=== PATIENT | female | born 1995 | race Caucasian/White ===

== ENCOUNTER 2021-02-20 22:54 | Emergency (ER) | payer OTHER, SELFPAY ==
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
[2021-02-20 23:03] VITALS: BP 159/112; PULSE 89; RESP 18; TEMP 36.5; O2SAT 98
--- NOTE | 2021-02-20 23:03 | PC.NURSE ---
Trauma alert cancelled
[2021-02-20 23:08] VITALS: BP 159/112; PULSE 92; RESP 18; O2SAT 99; BMI 31.8
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
[2021-02-20 23:19] LABS: MANUAL DIFFERENTIAL MANUAL DIFFERENTIAL (MANUAL DIFF)
[2021-02-20 23:24] VITALS: BP 148/104; PULSE 90; O2SAT 98
[2021-02-20 23:25] LABS: Basophils # 0.2 K/mm3 (0-0.2); Basophils % 1.6 % (0.1-2.0); Eosinophils # 0.3 K/mm3 (0.0-0.4); Eosinophils % 2.7 % (0.1-12.0); Hematocrit 44.5 % (37.0-47.0); Hemoglobin 15.2 g/dL (12.2-16.2); Lymphocytes # 3.2 K/mm3 (0.7-4.5); Lymphocytes % 27.3 % (10-50); Mean Corpuscular HGB Conc 34.1 g/dL (31.8-35.4); Mean Corpuscular Hemoglobin 30.3 pg (27.0-31.2); Mean Corpuscular Volume 89.1 fl (81-99); Mean Platelet Volume 8.4 fl (7.4-10.4); Monocytes # 0.8 K/mm3 (0.1-1.0); Monocytes % 6.5 % (1.7-9.3); Neutrophils # 7.4 K/mm3 (1.8-7.8); Neutrophils % 61.9 % (37.0-80.0); Platelet Count 228 K/mm3 (142-424); Red Cell Distribution Width 14.3 % (11.5-17.5); White Blood Count 11.9 K/mm3 (4.8-10.8)
[2021-02-20 23:28] LABS: Alanine Aminotransferase 22 U/L (12-78); Albumin Level 4.7 g/dl (3.5-5.0); Albumin/Globulin Ratio 1.8 (1.1-1.8); Alkaline Phosphatase 103 U/L (38-126); Anion Gap 12.8 mEq/L (5-15); Aspartate Amino Transferase 34 U/L (14-36); Bilirubin,Total 0.4 mg/dl (0.2-1.3); Blood Urea Nitrogen 8 mg/dl (7-17); Calcium 9.3 mg/dl (8.4-10.2); Carbon Dioxide 25 mmol/L (22.0-30.0); Chloride 109 mmol/L (98-107); Creatinine Clearance Estimated 160 mL/min (50-200); Estimated Glomerular Filt Rate 103 ml/min (>60); GFR (African American) 124 ML/MIN (>60); Globulin 2.6 g/dL (1.3-3.2); Glucose 95 mg/dl (74-100); Lipase 77 U/L (23-300); Potassium 3.8 mmoL/L (3.5-5.1); Sodium 143 mmol/L (136-145); Total Protein,Serum 7.3 g/dl (6.3-8.2)
[2021-02-20 23:30] VITALS: BP 133/102; PULSE 82; O2SAT 98
[2021-02-20 23:32] LABS: HCG Qualitative, Serum Negative (Negative)
--- NOTE | 2021-02-20 23:38 | PC.NURSE ---
Pt to rad.
[2021-02-20 23:40] LABS: Eosinophils % 3 % (0-3); Lymphocytes % 28 % (10-50); Monocytes % 6 % (2-9); Neutrophils % 63 % (42-76); Total Cells Counted 100
[2021-02-20 23:41] LABS: Platelet Estimate Normal; RBC Morphology Normal
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
--- NOTE | 2021-02-21 00:07 | HMH.EDTRAUMA ---
ED Disposition Clinical Impression: Concussion Qualifiers: Encounter type: initial encounter Loss of consciousness presence/duration: with LOC of 30 min or less Qualified Code(s): S06.0X1A - Concussion with loss of consciousness of 30 minutes or less, initial encounter Contusion of rib on left side Qualifiers: Encounter type: initial encounter Qualified Code(s): S20.212A - Contusion of left front wall of thorax, initial encounter Blunt trauma to abdomen Qualifiers: Encounter type: initial encounter Qualified Code(s): S39.91XA - Unspecified injury of abdomen, initial encounter Disposition: Home, Self-Care Condition on Discharge: Good Instructions: DI for Concussion Additional Instructions: fluids and see pcp for follow up Referrals: Corinne Cano [Primary Care Provider] - - Critical Care Critical Care Time: No Attestation: On 02/20/21, the high probability of a clinically significant, sudden or life threatening deterioration of the following system(s) required my full and direct attention, intervention and personal management. The time I documented below is in addition to time spent performing reported procedures but includes the following listed in this critical care notation. Medical Decision Making - Medical Records Medical records reviewed: Yes: I reviewed the patient's medical records. - Brendan Inquiry Pt receiving controlled substance: No Vital Signs: 02/20/21 23:03 02/20/21 23:08 02/20/21 23:24 Temperature 97.7 F Temperature Source Oral Pulse Rate 90 Pulse Rate [Right Brachial] 89 92 H Respiratory Rate 18 18 Blood Pressure 148/104 H Blood Pressure [right arm] 159/112 H 159/112 H Blood Pressure Mean [right arm] 127 127 Blood Pressure Source [right arm] Automatic Cuff Automatic Cuff Blood Pressure Position [right arm] Sitting 02 Sat by Pulse Oximetry 98 99 98 Oxygen Delivery Method Room Air Room Air 02/20/21 23:30 02/21/21 00:24 02/21/21 00:30 Temperature Temperature Source Pulse Rate 82 83 70 Pulse Rate [Right Brachial] Respiratory Rate Blood Pressure 133/102 H 167/122 H 165/115 H Blood Pressure [right arm] Blood Pressure Mean [right arm] Blood Pressure Source [right arm] Blood Pressure Position [right arm] 02 Sat by Pulse Oximetry 98 97 98 Oxygen Delivery Method Room Air - Lab Data Lab results reviewed: Yes: I reviewed the patient's lab results. Lab Results 02/20/21 23:08: WBC 11.9 H, RBC 5.00, Hgb 15.2, Hct 44.5, MCV 89.1, MCH 30.3, MCHC 34.1, RDW 14.3, Plt Count 228, MPV 8.4, Neut % (Auto) 61.9, Lymph % (Auto) 27.3, [place] % (Auto) 6.5, Eos % (Auto) 2.7, Baso % (Auto) 1.6, Neut # (Auto) 7.4, Lymph # (Auto) 3.2, [place] # (Auto) 0.8, Eos # (Auto) 0.3, Baso # (Auto) 0.2, Total Counted 100, Neutrophils % (Manual) 63, Lymphocytes % (Manual) 28, Monocytes % (Manual) 6, Eosinophils % (Manual) 3, Platelet Estimate Normal, RBC Morphology Normal 02/20/21 23:08: Sodium 143, Potassium 3.8, Chloride 109 H, Carbon Dioxide 25, Anion Gap 12.8, BUN 8, Creatinine 0.70, Estimated Creat Clear 160, Estimated GFR 103, Est GFR ( Amer) 124, Glucose 95, Calcium 9.3, Total Bilirubin 0.4, AST 34, ALT 22, Alkaline Phosphatase 103, Total Protein 7.3, Albumin 4.7, Globulin 2.6, Albumin/Globulin Ratio 1.8, Lipase 77 02/20/21 23:08: Serum HCG, Qual Negative Result diagrams: 02/20/21 23:08 02/20/21 23:08 Orders (Tests/Meds): ED MEDICATIONS Generic Name Dose Route Start Last Admin Trade Name Freq PRN Reason Stop Dose Admin Lactated Ringer's 1,000 mls @ 999 mls/hr 02/20/21 23:15 02/20/21 23:22 Lactated Ringer's 1000 Ml Bag IV 02/21/21 00:15 999 mls/hr .Q1H1M JAMAL Administration Discontinued Medications Generic Name Dose Route Start Last Admin Trade Name Freq PRN Reason Stop Dose Admin Acetaminophen/Codeine Phosphate 1 babita 02/21/21 01:24 Acetaminophen 300mg W/Codeine 30mg Take Home Pack (6) PO 02/21/21 01:25 ONCE ONE Iopamidol 100
[2021-02-21 00:24] VITALS: BP 167/122; PULSE 83; O2SAT 97
[2021-02-21 00:30] VITALS: BP 165/115; PULSE 70; O2SAT 98
[2021-02-21 01:37] VITALS: BP 158/100; PULSE 75; RESP 16; TEMP 36.6; O2SAT 98
[2021-02-21 01:38] LABS: Microscopic, Urine URINE MICROSCOPIC (MICROSCOPIC)
[2021-02-21 01:43] LABS: Appearance,Urine SL CLOUDY (Clear); Bilirubin,Urine Negative (Negative); Blood, Urine Negative (Negative); Color,Urine STRAW (Yellow); Glucose,Urine (UA) Negative (Negative); Ketones,Urine Negative (Negative); Leukocyte Esterase,Urine TRACE (Negative); Nitrate,Urine Negative (Negative); PH,Urine 5.5 (5.0-8.5); Protein,Urine Negative (Negative); Urobilinogen,Urine 0.2 EU/dl (0.2)
[2021-02-21 01:45] LABS: Urine Pregnancy, HCG Qual. Negative (Negative)
[2021-02-21 01:51] LABS: Bacteria,Urine Trace /lpf
== END 2021-02-21 01:42 | disposition home or self-care (01) ==
PROVIDERS: Emergency Provider Emergency Medicine; PCP Nurse Practitioner Family
DX: S06.0X1A Concussion with loss of consciousness of 30 minutes or less, initial encounter (principal); S20.212A Contusion of left front wall of thorax, initial encounter; V86.55XA Driver of 3- or 4- wheeled all-terrain vehicle (ATV) injured in nontraffic accident, initial encounter; Y92.9 Unspecified place or not applicable
CPT/HCPCS: 70450; 71045; 71275; 72125; 72128; 72131; 72170; 74177; 80053; 81001; 81025; 83690; 84703; 85007; 85014; 85018; 85048; 85049; 87086; 96365; 96375; 99291; J2405; Q9967

== ENCOUNTER 2022-02-27 12:02 | Emergency (ER) | payer OTHER, SELFPAY ==
[2022-02-27] VITALS (10 sets, daily range): BP systolic 116–147; BP diastolic 86–110; PULSE 82–94; RESP 18; TEMP 37; O2SAT 96–99; BMI 28.7
--- NOTE | 2022-02-27 12:12 | ECG_ITS ---
APPROVED REPORT Exam: Resting ECG HR:97 bpm ECG Measurements Heart Rate 97 AXES ND 148 P 66 QRSd 72 QRS 89 QT 343 T 57 QTc 398 Conclusion SINUS RHYTHM NORMAL ECG UNCONFIRMED REPORT Electronically signed by : Fransisco Azevedo MD 02/28/2022 14:16:01
--- NOTE | 2022-02-27 12:24 | PC.NURSE ---
ED MD AT BEDSIDE FOR EVALUATION
--- NOTE | 2022-02-27 12:28 | XR_ITS ---
FINAL REPORT CLINICAL HISTORY: hypertension FINDINGS: A portable view of the chest was obtained. Comparison is made to a prior exam dated February 20, 2021. Cardiac and mediastinal silhouettes are within normal limits. The lungs are clear. There is no pleural effusion or pneumothorax. IMPRESSION: No acute process on this portable exam. Reviewed, Interpreted and Dictated by Daria Garcia MD Transcribed by Elton Moses Authenticated and [facility]
--- NOTE | 2022-02-27 12:45 | PC.NURSE ---
ROUNDED ON PT, UPDATED ON POC. ORDERED UA. PT INSTRUCTED TO CALL WHEN ABLE TO VOID. PT TALKING ON PHONE. NO NEEDS AT THIS TIME
[2022-02-27 12:52] LABS: Troponin I < 0.01 ng/ml (0.00-0.034)
--- NOTE | 2022-02-27 12:56 | PC.NURSE ---
XR AT BEDSIDE
--- NOTE | 2022-02-27 13:24 | PC.NURSE ---
ROUNDED ON PT, WARM BLANKET PROVIDED. REMAINS UNABLE TO VOID AT THIS TIME. CALL LIGHT WITHIN REACH
--- NOTE | 2022-02-27 13:53 | HMH.EDGENADL ---
ED Disposition Clinical Impression: Left against medical advice Disposition: Left Against Medical Advice Condition on Discharge: Fair Referrals: Tavia Soto, [facility] [Primary Care Provider] - - Critical Care Critical Care Time: No Attestation: On 02/27/22, the high probability of a clinically significant, sudden or life threatening deterioration of the following system(s) required my full and direct attention, intervention and personal management. The time I documented below is in addition to time spent performing reported procedures but includes the following listed in this critical care notation. Medical Decision Making - Brendan Inquiry Pt receiving controlled substance: No Vital Signs: 02/27/22 12:03 02/27/22 13:46 02/27/22 14:00 Temperature 98.6 F Temperature Source Oral Pulse Rate 85 90 Pulse Rate [Radial] 94 H Respiratory Rate 18 Blood Pressure 116/86 133/100 H Blood Pressure [Right Arm] 147/105 H Blood Pressure Mean 111 Blood Pressure Mean [Right Arm] 119 Blood Pressure Source [Right Arm] Automatic Cuff Blood Pressure Position [Right Arm] Sitting 02 Sat by Pulse Oximetry 99 96 97 Oxygen Delivery Method 02/27/22 14:15 02/27/22 14:30 02/27/22 14:45 Temperature Temperature Source Pulse Rate 85 83 83 Pulse Rate [Radial] Respiratory Rate Blood Pressure 137/97 H 129/102 H 137/110 H Blood Pressure [Right Arm] Blood Pressure Mean 114 109 119 Blood Pressure Mean [Right Arm] Blood Pressure Source [Right Arm] Blood Pressure Position [Right Arm] 02 Sat by Pulse Oximetry 97 98 96 Oxygen Delivery Method 02/27/22 15:00 02/27/22 15:07 02/27/22 15:15 Temperature Temperature Source Pulse Rate 83 88 82 Pulse Rate [Radial] Respiratory Rate Blood Pressure 135/103 H Blood Pressure [Right Arm] Blood Pressure Mean 117 130 141 Blood Pressure Mean [Right Arm] Blood Pressure Source [Right Arm] Blood Pressure Position [Right Arm] 02 Sat by Pulse Oximetry 98 98 98 Oxygen Delivery Method 02/27/22 15:33 Temperature 98.6 F Temperature Source Pulse Rate 88 Pulse Rate [Radial] Respiratory Rate 18 Blood Pressure 135/103 H Blood Pressure [Right Arm] Blood Pressure Mean Blood Pressure Mean [Right Arm] Blood Pressure Source [Right Arm] Blood Pressure Position [Right Arm] 02 Sat by Pulse Oximetry Oxygen Delivery Method Room Air - Lab Data Lab Results 02/27/22 12:15: Troponin I < 0.01 02/27/22 12:15: WBC 5.0, RBC 5.21, Hgb 16.7 H, Hct 48.2 H, MCV 92.6, MCH 32.1 H, MCHC 34.6, RDW 12.6, Plt Count 171, MPV 8.3, Neut % (Auto) 36.2 L, Lymph % (Auto) 46.3, [place] % (Auto) 12.2 H, Eos % (Auto) 1.9, Baso % (Auto) 3.5 H, Neut # (Auto) 1.8, Lymph # (Auto) 2.3, [place] # (Auto) 0.6, Eos # (Auto) 0.1, Baso # (Auto) 0.2 02/27/22 12:15: Sodium 143, Potassium 4.1, Chloride 111 H, Carbon Dioxide 25, Anion Gap 11.1, BUN 7, Creatinine 0.60, Estimated Creat Clear 166, Estimated GFR 122, Est GFR ( Amer) 147, Glucose 86, Calcium 9.4, Total Bilirubin 0.2, AST 40 H, ALT 36, Alkaline Phosphatase 70, Total Protein 7.1, Albumin 4.5, Globulin 2.6, Albumin/Globulin Ratio 1.7 Result diagrams: 02/27/22 12:15 02/27/22 12:15 Orders (Tests/Meds): ORDERS Category Date Time Status UA [Urinalysis and Microscopic] Stat Lab 02/27/22 12:28 Ordered Medical Decision Narrative: Reviewed is a 26-year-old female who presents with hypertension, dizziness, headache. Hemodynamically stable and nontoxic-appearing upon arrival. On initial assessment her blood pressure is a little elevated here especially with her diastolic being above 110. We will obtain laboratory studies to evaluate for any endorgan dysfunction. Her initial laboratories were all unremarkable. She did not provide a urine sample and did not provide who her PCP is so I could be able to talk with them upon what they would like to start for outpatient antihypertensive. Trying to o
[2022-02-27 14:23] LABS: Chloride 111 mmol/L (98-107); Potassium 4.1 mmoL/L (3.5-5.1); Sodium 143 mmol/L (136-145)
[2022-02-27 14:25] LABS: Basophils # 0.2 K/mm3 (0-0.2); Basophils % 3.5 % (0.1-2.0); Eosinophils # 0.1 K/mm3 (0.0-0.4); Eosinophils % 1.9 % (0.1-12.0); Hematocrit 48.2 % (37.0-47.0); Hemoglobin 16.7 g/dL (12.2-16.2); Lymphocytes # 2.3 K/mm3 (0.7-4.5); Lymphocytes % 46.3 % (10-50); Mean Corpuscular HGB Conc 34.6 g/dL (31.8-35.4); Mean Corpuscular Hemoglobin 32.1 pg (27.0-31.2); Mean Corpuscular Volume 92.6 fl (81-99); Mean Platelet Volume 8.3 fl (7.4-10.4); Monocytes # 0.6 K/mm3 (0.1-1.0); Monocytes % 12.2 % (1.7-9.3); Neutrophils # 1.8 K/mm3 (1.8-7.8); Neutrophils % 36.2 % (37.0-80.0); Platelet Count 171 K/mm3 (142-424); Red Blood Count 5.21 M/mm3 (4.20-5.40); Red Cell Distribution Width 12.6 % (11.5-17.5)
[2022-02-27 14:26] LABS: Alanine Aminotransferase 36 U/L (12-78); Albumin Level 4.5 g/dl (3.5-5.0); Albumin/Globulin Ratio 1.7 (1.1-1.8); Alkaline Phosphatase 70 U/L (38-126); Anion Gap 11.1 mEq/L (5-15); Aspartate Amino Transferase 40 U/L (14-36); Bilirubin,Total 0.2 mg/dl (0.2-1.3); Blood Urea Nitrogen 7 mg/dl (7-17); Calcium 9.4 mg/dl (8.4-10.2); Carbon Dioxide 25 mmol/L (22.0-30.0); Creatinine Clearance Estimated 166 mL/min (50-200); Estimated Glomerular Filt Rate 122 ml/min (>60); GFR (African American) 147 ML/MIN (>60); Globulin 2.6 g/dL (1.3-3.2); Glucose 86 mg/dl (74-100); Total Protein,Serum 7.1 g/dl (6.3-8.2)
--- NOTE | 2022-02-27 15:28 | PC.NURSE ---
checked on pt to collect a urine, pt stated that she wanted to leave AMA. STates that her pcp told her to come here today since she didnt have an opening. PT states that her pcp called and that she asked what we had done for her and she stated nothing and she was just going to fu with her pcp. Explained that MD was dialing her pcp at this time. PT states he only thinks its her depo anyways so she would fu with her pcp. IV removed and ama paper signed
== END 2022-02-27 15:34 | disposition left against medical advice (07) ==
PROVIDERS: Emergency Provider Student in an Organized Health Care Education/Training Program; PCP Nurse Practitioner
DX: Z53.29 Procedure and treatment not carried out because of patient's decision for other reasons (principal); R51.9 Headache, unspecified; R42 Dizziness and giddiness; R00.0 Tachycardia, unspecified
CPT/HCPCS: 71045; 80053; 84484; 85025; 93005; 99283